=== PATIENT | female | born 1965 | race Caucasian/White ===

== ENCOUNTER → 2016-05-15 | Outpatient (CLI) | payer MEDICARE, OTHER ==
[~2016-05-15] MED LIST: ADVAIR 250-501 EACH IH; ALBUTEROL 0.5ML INH; ASPIRIN81 MG PO; BACLOFEN20 M1 PO; BACLOFEN20 MG PO; CYMBALTA PO; DIAZEPAM PO; GLYBURIDE PO; HYDROCODON-ACE1 EAC4 PO; LANTUS100 U/ML SUBQ; LEVAQUIN750 MG PO; LIPITOR20 MG PO; METFORMIN HCL500 M1 PO; NEURONTIN PO; NEURONTIN600 MG PO; NOVOLOG100 U/M1; OMEPRAZOLE20 M2 PO; OXYGEN AT; PERCOCET 10/31 UDTA1 PO; PREDNISONE10 MG/DOSE PO; PROAIR HFA8.5 GM IH; TAMIFLU75 M1 PO; VALIUM10 MG PO; VESICARE PO; VICTOZA0.6 MG/0.1 SUBQ; VOLTAREN75 MG PO; ZESTORETIC1 TAB PO
--- NOTE | ~2016-05-15 | US24 ---
[facility] A Service of [facility] RADIOLOGY TEXT RESULTS PATIENT: WADE ZHENG LOCATION: [facility] : 63 UNIT #: [id number] AGE: [address]: GAYLE TREJO APRN SEX: F ORDER DR: [id number] [facility]. [place], [place] [address] [id number] O MR#: [id number] Acc #: [id number] NAME: WADE ZHENG : 1965 SEX: F STUDY DATE/TIME: 05/15/2016 15:38 UNIT: [facility] ROOM: STUDY DESCRIPTION: US Breast Unilateral Attending Physician: Gayle Trejo Aprn Referring Physician: Gayle Trejo Aprn Ordering Physician: Gayle Trejo Aprn Primary Care Physician: Gayle Trejo Aprn MEDICAL IMAGING REPORT This report is preliminary unless electronic signature is present EXAM Right breast ultrasound COMPARISON Right diagnostic mammogram on the same date as well as effective baseline screening mammogram dated May 04, 2016. INDICATION 50-year-old female with a suspected 6 o'clock right breast mass on screening mammography. Additional imaging evaluation was recommended. FINDINGS/IMPRESSION Please see separately dictated report of right diagnostic mammography on the same day for full sonographic findings in the right breast today as well as final impression and recommendations. In short, patient's finding of initial concern on mammography corresponds to a benign fluid containing ectatic subareolar 6 o'clock duct. There is no intraductal mass. In the absence of interval breast complaints, continued annual screening mammography is recommended. Findings and recommendations discussed with the patient today. BIRADS: 2 Benign finding Dictated by... Darion Aguilar M.D. THIS IS AN ELECTRONICALLY VERIFIED REPORT Darion Aguilar M.D. at 05/16/2016 7:28 AM Abel TD: 05/16/2016 06:14 JOB #: [id number] [facility] A Service of [facility] RADIOLOGY TEXT RESULTS PATIENT: WADE ZHENG LOCATION: [facility] #: [id number] : 63 UNIT #: [id number] AGE: [address]: GAYLE TREJO APRN SEX: F ORDER DR: MEDICAL IMAGING REPORT COPY
--- NOTE | ~2016-05-15 | MY8 ---
[facility] A Service of [facility] RADIOLOGY TEXT RESULTS PATIENT: WADE ZHENG LOCATION: [facility] : 63 UNIT #: [id number] AGE: [address]: GAYLE TREJO APRN SEX: F ORDER DR: [id number] [facility]. [place], [place] [address] [id number] O MR#: [id number] Acc #: [id number] NAME: WADE ZHENG : 1965 SEX: F STUDY DATE/TIME: 05/15/2016 14:43 UNIT: [facility] ROOM: STUDY DESCRIPTION: MY Mammogram Dx Dig Rt Attending Physician: Gayle Trejo Aprn Referring Physician: Gayle Trejo Aprn Ordering Physician: Gayle Trejo Aprn Primary Care Physician: Gayle Trejo Aprn MEDICAL IMAGING REPORT This report is preliminary unless electronic signature is present EXAM Right digital diagnostic mammogram, 05/15/2016 COMPARISON Baseline screening mammogram dated May 04, 2016 INDICATION 50-year-old female with suspected right breast mass in the 6 o'clock anterior third. Additional imaging evaluation was recommend. FINDINGS Spot magnification CC as well as full field rolled medial and rolled lateral CC views and full field MLO and ML views as well spot magnification CC and ML views of right breast were obtained. There is 1 cluster of microcalcifications which is consistent with benign vascular microcalcifications in the 6 o'clock middle third of the right breast. There is a separate grouping of microcalcifications seen on CC projection which does not localize on lateral projections and does not meet criteria for a cluster. A persistent finding in the right breast is a focal asymmetry measuring up to as much as 1.3 cm x 0.8 cm x approximately 0.9 cm in the 6 o'clock anterior third of the right breast approximately 1 cm from the nipple. Sonographic evaluation was performed in this location and there is a corresponding ectatic fluid-filled duct measuring approximately 11 mm x 6 mm x up to 15 mm, corresponding to size and location to the mammographic finding. The patient does report benign green right nipple discharge. There is no evidence of intraductal mass. IMPRESSION No mammographic or sonographic evidence of malignancy in the right breast. The finding initial concern on screening mammography is consistent with a benign fluid-filled ectatic duct. In the absence of interval breast complaints, continued annual screening mammography is recommended. [facility] A Service of [facility] RADIOLOGY TEXT RESULTS PATIENT: WADE ZHENG LOCATION: [facility] : 63 UNIT #: [id number] AGE: [address]: GAYLE TREJO APRN SEX: F ORDER DR: Patient was instructed to inform her doctor of any new completely clear or bloody nipple discharge. Patients over the age of 40 are entered into a reminder system with target due date for the next mammogram. A result letter will also be sent to the patient. BIRADS: 2 Benign finding. Dictated by... Darion Aguilar M.D. THIS IS AN ELECTRONICALLY VERIFIED REPORT Darion Aguilar M.D. at 05/16/2016 7:28 AM Dwight TD: 05/16/2016 00:00 JOB #: [id number] MEDICAL IMAGING REPORT COPY
== END | disposition home or self-care (01) ==
LOC: CMAM 14:02
DX: N63 Unspecified lump in breast (principal)
CPT/HCPCS: 76641; G0206

== ENCOUNTER → 2016-08-13 | Outpatient (CLI) | payer MEDICARE, OTHER ==
--- NOTE | ~2016-08-13 | CR58 ---
[facility] A Service of [facility] RADIOLOGY TEXT RESULTS PATIENT: CASSIE ZHENG LOCATION: [facility] : 63 UNIT #: [id number] AGE: [address]: Cassie Mims APRN SEX: F ORDER DR: [id number] [address] [address] [id number] O MR#: [id number] Acc #: [id number] NAME: CASSIE ZHENG : 1965 SEX: F STUDY DATE/TIME: 08/13/2016 11:05 UNIT: [facility] ROOM: STUDY DESCRIPTION: CR Cervical Spine 2 or 3 Views Attending Physician: Cassie Mims Aprn Referring Physician: Cassie Mims Aprn Ordering Physician: Cassie Mims Aprn Primary Care Physician: Gayle De La Cruz Aprn MEDICAL IMAGING REPORT This report is preliminary unless electronic signature is present EXAM Cervical spine, 4 views COMPARISON April 14, 2015 INDICATIONS 50-year-old female with neck pain since 2007. Degenerative disc disease. FINDINGS Neutral lateral, lateral flexion and lateral extension views as well as swimmer's view of the cervical spine were obtained. There is disc height loss at C6-C7, where there is also uncinate hypertrophy and anterior osteophyte formation. Alignment at C6-C7 is not well evaluated on all views due to overlapping soft tissues. The visualized cervical spine is anatomically aligned in neutral, flexion and extension positions. No evidence of fracture. Cervicothoracic junction is also not well seen due to overlapping structures. IMPRESSION 1. C6-C7 and the cervicothoracic junction are not well seen due to overlapping structures. 2. There is no evidence of subluxation or instability on the current exam. 3. Degenerative disc disease and uncinate hypertrophy at C6-C7. No other significant degenerative changes. No acute fracture. Dictated by... [facility] A Service [facility] RADIOLOGY TEXT RESULTS PATIENT: CASSIE ZHENG LOCATION: [facility] : 63 UNIT #: [id number] AGE: [address]: Cassie Mims APRN SEX: F ORDER DR: Darion Aguilar M.D. THIS IS AN ELECTRONICALLY VERIFIED REPORT Darion Aguilar M.D. at 08/19/2016 8:07 PM ANDREA/malika TD: 08/14/2016 22:38 JOB #: [id number] MEDICAL IMAGING REPORT Page 1 of 1 COPY
--- NOTE | ~2016-08-13 | CR181 ---
[facility] A Service of [facility] RADIOLOGY TEXT RESULTS PATIENT: CASSIE ZHENG LOCATION: [facility] : 63 UNIT #: [id number] AGE: [address]: Cassie Mims APRN SEX: F ORDER DR: [id number] [facility]. [place], [place] [address] [id number] O MR#: [id number] Acc #: [id number] NAME: CASSIE ZHENG : 1965 SEX: F STUDY DATE/TIME: 08/13/2016 11:06 UNIT: [facility] ROOM: STUDY DESCRIPTION: CR Lumbar Spine 2 or 3 Views Attending Physician: Cassie Mims Aprn Referring Physician: Cassie Mims Aprn Ordering Physician: Cassie Mims Aprn Primary Care Physician: Gayle De La Cruz Aprn MEDICAL IMAGING REPORT This report is preliminary unless electronic signature is present EXAM Lumbar spine, 3 views COMPARISON April 05, 2007. HISTORY 50-year-old female with low back pain since 2007. History of unspecified low back surgery. Degenerative disc disease. FINDINGS Lateral as well as flexion/extension views of the lumbar spine performed. There is diffuse calcification of the infrarenal abdominal aorta extending into the iliac arteries. There is no spondylolisthesis of the lumbar spine. There is degenerative disc height loss at L3-L4. There is apparent degenerative facet sclerosis at L5-S1. No evidence of acute fracture. Degenerative sclerosis of the L4-L5 facets is also suspected. IMPRESSION 1. No acute fracture, subluxation or instability of the lumbar spine. 2. Degenerative disc height loss at L3-L4. Suspected degenerative facet disease at L4-L5 with definite degenerative facet sclerosis at L5-S1. No evidence of acute fracture. 3. Arterial calcification in the abdomen and pelvis. Dictated by... Darion Aguilar M.D. THIS IS AN ELECTRONICALLY VERIFIED REPORT Darion Aguilar M.D. at 08/19/2016 8:08 PM BLM/pcl [facility] A Service of [facility] RADIOLOGY TEXT RESULTS PATIENT: CASSIE ZHENG LOCATION: [facility] #: [id number] : 63 UNIT #: [id number] AGE: [address]: Cassie Mims APRN SEX: F ORDER DR: TD: 08/14/2016 22:54 JOB #: [id number] MEDICAL IMAGING REPORT Page 1 of 1 COPY
== END | disposition home or self-care (01) ==
LOC: CRAD 10:46
DX: M51.36 Other intervertebral disc degeneration, lumbar region (principal); M50.30 Other cervical disc degeneration, unspecified cervical region; M51.86 Other intervertebral disc disorders, lumbar region; I70.8 Atherosclerosis of other arteries
CPT/HCPCS: 72040; 72100